=== PATIENT | female | born 1960 | race Caucasian/White ===

== ENCOUNTER 2019-02-13 11:58 | Observation (INO) ==
[2019-02-13] MEDS ORDERED: Isovue-370 500 ML BOTTLE IVP ONE ×3 (12:19→13:50)
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
[2019-02-13 12:41] LABS: Basophils % 0.6 %; Eosinophils # 0.1 K/mcL (0.0-0.6); Eosinophils % 1.2 %; Hematocrit 39.9 % (35.3-44.9); Hemoglobin 13.3 g/dL (11.5-15.4); Immature Granulocytes % 0.5 % (0-4); Lymphocytes % 46.4 %; Mean Corpuscular HGB Conc 33.3 g/dL (31.6-35.5); Mean Corpuscular Hemoglobin 29.6 pg (28.0-33.3); Mean Corpuscular Volume 88.7 fL (83.0-100.0); Mean Platelet Volume 10.1 fL (9.4-12.4); Monocytes # 0.6 K/mcL (0.0-1.3); Monocytes % 8.4 %; Neutrophils # 2.8 K/mcL (1.6-8.9); Platelet Count 257 K/mcL (140-400); Red Cell Distribution Width 13.2 % (11.5-14.5); Segmented Neutrophils % 42.9 %
[2019-02-13 12:49] LABS: Prothrombin Time 11.6 Seconds (9.4-12.1)
[2019-02-13 12:51] LABS: Activated Partial Thrombo Time 34.5 Seconds (26.0-36.0)
[2019-02-13 13:03] LABS: BUN/Creatinine Ratio 16 (6-26); Blood Urea Nitrogen 12 mg/dL (6-20); Calcium 9.6 mg/dL (8.6-10.3); Carbon Dioxide 25 mEq/L (23-29); Chloride 107 mEq/L (98-107); Glucose 94 mg/dL (70-105); Osmolality,Calculated 288 (280-300); Potassium 3.7 mEq/L (3.5-5.1); Sodium 139 mEq/L (136-145); Troponin I < 0.03 ng/mL (< 0.04); eGFR For Non-African Americans > 60 (> 60)
[2019-02-13] MEDS ORDERED: Ondansetron 4 MG/2 ML VIAL IVP PRN (16:20)
[2019-02-13] MEDS ORDERED: Acetaminophen 325 MG TABLET PO PRN (16:20)
[2019-02-13] MEDS ORDERED: Naloxone 0.4 MG/ML INJ IVP PRN (16:20)
--- NOTE | 2019-02-13 16:28 | Internal Med History&Physical ---
Date of Encounter: 02/13/19 Time of Encounter: 16:24 Internal Medicine - H&P: HPI Chief complaint: CP Admitted From: Emergency Dept History of present illness: Ksenia Keller is a 58 F w hx HTN, HLD, obesity, former smoker, who p/w CP. CP began early this AM, continuous for about 3 hrs, radiating mostly to R shoulder and into back but did have isolated episode of pain radiating up into R jaw. Pain associated w N but no V. Not exertional. Seems to improve with holding R arm across her chest. No SOB or palpitations. No headache, no vURI symptoms. Not current smoker. Reports taking meds for HTN and HLD. Last stress test ~5 years ago reportedly normal when similarly had an episode of chest pain. Currently pt is pain free. Reports she is under increased stress lately. Rec'd ASA 325 earlier. Able to ambulate. In the ED, pt vitals HR 50s, RR 18, SBP 150-170s, afebrile. All labs wnl including trop x1. ECG showing NSR. CXR unremarkable. Due to characterization of pain and hx aneurysm, pt sent for CTA which was negative for PE or dissection. Admitted for ACS r/o. Past medical, surgical, social, and family histories reviewed and updated as below, w addition to FHx of mother w 3vCABG and MGF of [place]. Past Med Surg Social Fam HX - Past Medical History Medical history: hyperlipidemia, hypertension Psychiatric history: no psych history - Past Surgical History Surgical History: no surgical history - Social History Smoking Status: Former smoker Smokeless Tobacco Status: No Alcohol use: none Drug use: none Internal Medicine - H&P: Meds Amlodipine Besylate 10 mg PO DAILY 06/13/15 [History] Atorvastatin Calcium [Lipitor] 20 mg PO HS 02/13/19 [History] Losartan Potassium [Cozaar] 50 mg PO DAILY 02/13/19 [History] Allergy/AdvReac Type Severity Reaction Status Date / Time Penicillins Allergy Difficulty Verified 02/13/19 16:03 Breathing All Systems PM: A 10-system review of systems was performed and is negative for pertinent findings except as documented above in the HPI. - Constitutional Vitals: Temp Pulse Resp BP Pulse Ox 97.5 F L 52 18 155/81 100 02/13/19 12:02 02/13/19 13:54 02/13/19 13:54 02/13/19 13:54 02/13/19 13:54 Exam: General: NAD, good eye contact, well appearing Head: Atraumatic, normocephalic. Face symmetric Eyes: EOMI, sclerae anicteric ENT: Mucous membranes moist. Normal oral mucosa and dentition. Trachea midline. Thoracic: No visible chest wall deformities. Normal breath sounds b/l, no wheezing or crackles Cardio: Normal S1 and S2, regular rate and rhythm, no murmurs. No JVD Abdomen: Soft, nontender, nondistended. Extremities: Warm, well perfused. Radial and DP pulses 2+ b/l. No clubbing, cyanosis. No edema Skin: Intact. No rashes, bruises, or ulcers Neuro: Awake, fully oriented. Good memory, concentration, attention. Speech fluent. CN II-XII grossly intact. Strength 5/5 in b/l UE and LE Internal Med - H&P Results - Labs CBC & Chem 7: 02/13/19 12:23 02/13/19 12:23 Labs: Short CBC 02/13/19 Range/Units 12:23 WBC 6.5 (4.3-11.1) K/mcL Hgb 13.3 (11.5-15.4) g/dL Hct 39.9 (35.3-44.9) % Plt Count 257 (140-400) K/mcL Neutrophils # 2.8 (1.6-8.9) K/mcL BMP 02/13/19 12:23 Sodium 139 Potassium 3.7 Chloride 107 Carbon Dioxide 25 BUN 12 Creatinine 0.73 Glucose 94 Calcium 9.6 Cardiac Enzymes 02/13/19 Range/Units 12:23 Troponin I < 0.03 (< 0.04) ng/mL - Impressions ITS Impressions Chest X-Ray 02/13/19 12:16 IMPRESSION: No acute cardiopulmonary disease. D/ / Selvin Downey MD / Selvin Downey MD Interpreting Provider: Selvin Downey MD Dissection 02/13/19 12:19 IMPRESSION: No evidence of aortic dissection or aneurysm. No significant atherosclerotic disease. No evidence of pulmonary embolism. No acute abnormality in the chest, abdomen or pelvis. Grade 3 anterolisthesis of L5 on S1 with chronic fusion of the L5-S1 disc space as well as bilateral L5 pars defects. Diverticulosis without evidence of acute diverticulitis. D/ / 02/13/2019 14:17:29 Jassi Kemp MD / jones Interpreting Provider: Jassi Kemp MD - Summary of Assessment and Plan Summary of Assessment and Plan: Ksenia Keller is a 58 F w hx HTN, HLD, obesity, former smoker, who p/w atypical chest pain. Atypical chest pain: HEART 4 (H1 A1 R2), ECG unremarkable and trop wnl, and per ED shared decision making with patient she opted for inpatient stress - trend trops - tele - a1c and lipids - TTE - exercise ECG stress HTN: home amlodipine 10, losartan 50 HLD: home lipitor 20 Obesity: BMI 34 PPx: ambulation FEN: cardiac, no MIVF Lines: PIV Consults: Code: Full Dispo: obs for acs r/o, likely tomorrow, will be homegoing
[2019-02-14 06:48] LABS: Hematocrit 42.3 % (35.3-44.9); Hemoglobin 13.8 g/dL (11.5-15.4); Mean Corpuscular HGB Conc 32.6 g/dL (31.6-35.5); Mean Corpuscular Hemoglobin 29.2 pg (28.0-33.3); Mean Corpuscular Volume 89.4 fL (83.0-100.0); Mean Platelet Volume 9.9 fL (9.4-12.4); Platelet Count 264 K/mcL (140-400); Red Blood Count 4.73 M/mcL (3.82-4.97); Red Cell Distribution Width 13.3 % (11.5-14.5)
[2019-02-14 07:11] LABS: Alanine Aminotransferase 5 Units/L (7-52); Albumin 4.5 g/dL (3.5-5.7); Albumin/Globulin Ratio 1.9 (1.1-2.2); Alkaline Phosphatase 60 Units/L (34-104); Aspartate Amino Transferase 11 Units/L (13-39); BUN/Creatinine Ratio 14 (6-26); Bilirubin,Total 0.7 mg/dL (0.3-1.0); Blood Urea Nitrogen 10 mg/dL (6-20); Calcium 9.8 mg/dL (8.6-10.3); Carbon Dioxide 25 mEq/L (23-29); Chloride 107 mEq/L (98-107); Cholesterol 152 mg/dL (< 200); Globulin 2.4 g/dL (2.4-3.5); Glucose 112 mg/dL (70-105); HDL Cholesterol 51 mg/dL (40-59); LDL Cholesterol,Calculated 80 mg/dL (0-99); Magnesium 2.3 mg/dL (1.6-2.6); Osmolality,Calculated 296 (280-300); Sodium 143 mEq/L (136-145); Total Protein 6.9 g/dL (6.4-8.9); Triglycerides 106 mg/dL (< 150); Troponin I < 0.03 ng/mL (< 0.04); eGFR For Non-African Americans > 60 (> 60)
[2019-02-14] MEDS ORDERED: amLODIPine 5 MG TABLET PO SCH (09:00)
[2019-02-14 09:54] LABS: Estimated Average Glucose 126 mg/dl
[2019-02-14 11:54] VITALS: BP 126/80
--- NOTE | 2019-02-14 14:38 | Discharge Summary ---
- NOTES TO OUTPATIENT PROVIDER Notes to Outpatient Provider: f/u with PCP in one week. Please cut down on your caffeine intake. Orders not resulted at time of discharge: Pending orders 02/13/19 12:16 ECG 12 lead ECG [ECG] Stat 02/14/19 07:33 NM isidro perf SPECT multi [NM] Routine Date of Encounter: 02/14/19 Time of Encounter: 14:34 - Discharge Diagnosis (1) Chest pain Priority: Primary Status: Acute Qualifiers: Chest pain type: unspecified Qualified Code(s): R07.9 - Chest pain, unspecified (2) Hypertension Priority: Secondary Status: Acute Qualifiers: Hypertension type: essential hypertension Qualified Code(s): I10 - Essential (primary) hypertension (3) Hyperlipidemia Priority: Secondary Status: Acute Qualifiers: Hyperlipidemia type: unspecified Qualified Code(s): E78.5 - Hyperlipidemia, unspecified Hospital course: Ms. Keller is a 58 year old female with known past medical history of hypertension, hyperlipidemia, former smoker who presented to ER with chest pain located sub sternal region, radiated into her back and right shoulder. Patient was admitted in the hospital and she was placed on monitoring manager. Her serial troponin came back as negative. Her EKG showed normal sinus rhythm, no acute ischemic changes noticed. Since patient is high risk for ACS she did go for nuclear stress test which came back as negative for any ischemia/infarction. Will discharge her home in a stable condition today. I did recommend patient start taking aspirin 81 mg PO daily and cut down on her caffeine intake. - Time Spent with Patient Total time spent providing and/or coordinating discharge services: - Discharge Medications Prescriptions: New Aspirin Enteric Coated [Aspirin EC] 81 mg PO DAILY #30 tablet. Continued Amlodipine Besylate 10 mg PO DAILY Atorvastatin Calcium [Lipitor] 20 mg PO HS Losartan Potassium [Cozaar] 50 mg PO DAILY Home Medications: Amlodipine Besylate 10 mg PO DAILY 06/13/15 [History] Atorvastatin Calcium [Lipitor] 20 mg PO HS 02/13/19 [History] Losartan Potassium [Cozaar] 50 mg PO DAILY 02/13/19 [History] Aspirin Enteric Coated [Aspirin EC] 81 mg PO DAILY #30 tablet. 02/14/19 [Rx] Allergies/Adverse Reactions: Allergy/AdvReac Type Severity Reaction Status Date / Time Penicillins Allergy Difficulty Verified 02/13/19 16:03 Breathing Date of admission: 02/13/19 15:52 Primary care physician: Jordy Miller MD - Constitutional Vitals: Temp Pulse Resp BP Pulse Ox 98.5 F 53 17 126/80 98 02/14/19 11:53 02/14/19 11:53 02/14/19 11:53 02/14/19 11:53 02/14/19 11:53 General appearance: Present: A&O X 3, no acute distress, answers questions appropriately Exam: Gen: Alert, awake, Oriented to time,place and person Chest: Diminished breath sounds B/L, No wheezing, No crackles, No rales Heart: S1S2+ RRR No murmurs Abd: Soft, NT, BS +, No organomegaly Ext: No edema, pulses are palpable, No calf tenderness Neuro : Benign findings Skin: No rash. - Patient Status Disposition: Home, Self-Care Condition: Good Overall status at discharge: patient is back to baseline - Discharge Instructions Follow Up With: Jordy Miller MD [Primary Care Provider] - - Diet and Activity Activity: increase activity as tolerated Diet: low salt diet
--- NOTE | 2019-02-14 16:19 | Electrocardiograph Report ---
[place] [facility] Test Date: 2019-02-13 Pat Name: Ksenia Keller Department: EXAM1 Room: 3B49 Gender: F Sponge Buffer: : 1960 Requested By: Marcell Chavez Order Number: [id number] Reading MD: Neil Mathis Measurements Intervals [place] Rate: 55 P: 46 [place]: 172 QRS: 46 QRSD: 88 T: 55 QT: 455 QTc: 436 Interpretive Statements Sinus rhythm Low voltage, precordial leads Electronically Signed On 02-14-2019 16:17:27 EDT by Neil Mathis
== END 2019-02-14 14:50 | disposition home or self-care (01) ==
LOC: EMEROOARM 11:58 → 3BNU 11:58 → SUATTDRO 15:52 → 3BNU 17:23
PROVIDERS: ADMIT Internal Medicine; ATTEND Internal Medicine